=== PATIENT | male | born 1995 | race Caucasian/White ===

== ENCOUNTER 2018-11-12 11:12 | Emergency (ER) | payer OTHER ==
[2018-11-12 11:20] VITALS: BP 162/100; PULSE 66; TEMP 97.8; BMI 24.3
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
== END 2018-11-12 12:55 | disposition home or self-care (01) ==
LOC: JER 11:12
DX: T20.10XA Burn of first degree of head, face, and neck, unspecified site, initial encounter (principal)
CPT/HCPCS: 82375; 99281-25